=== PATIENT | male | born 1950 | race Caucasian/White ===

== ENCOUNTER 2016-07-23 23:52 | Inpatient (IN) | payer MEDICARE ==
[~2016-07-23] VITALS: Ht 180.3 cm; Wt 114.6 kg
[~2016-07-23 23:52] MED LIST: ASPI81TA40 PO; ATOR40TA37 PO; COR625 PO; NIT4 SL; PLA75 PO; ZES10 PO
[2016-07-23 23:55] VITALS: BP 89/59; PULSE 161; RESP 20; O2SAT 94
[2016-07-24] VITALS (14 sets, daily range): BP systolic 80–137; BP diastolic 58–84; PULSE 55–163; RESP 15–22; O2SAT 95–98
--- NOTE | 2016-07-24 | ED.REPORT ---
HPI-Chest Pain 40 and Over Date of Service Jul 23, 2016 ED Provider: Diane Rayo MD 66 year old male with a history of ME, HTN, and high cholesterol presents to the ER accompanied by his complaining of heavy chest pain onset this afternoon, worsening just prior to arrival. He also reports low blood pressure ( 87/60 at home), diaphoresis, persistent fatigue all day, and intermittent lightheadedness. Patient denies fever, chills, cough, swelling of the lower extremities, and recent immobilization, hospitalization, or travel. Symptoms have been treated with 162mg ASA. 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 Patient is a vague historian. EF of 56% in 2013. Nursing Notes Stated Complaint: CHEST PAIN Chief Complaint: Chest Pain Nursing Notes Reviewed: Yes Allergies: Coded Allergies: No Known Allergies (Unverified Allergy, Unknown, 07/24/16) Scheduled Aspirin-Expunged Drug, Do Not Renew! (Aspirin-Expunged Drug, Do Not Renew!) 81 Mg Tab.chew 81 MG PO DAILY Atorvastatin-Expunged Drug, Do Not Renew! (Atorvastatin-Expunged Drug, Do Not Renew!) 40 Mg Tablet 40 MG PO HS CLOPIDOGREL-Expunged Drug, Do Not Renew! (Plavix-Expunged Drug, Do Not Renew!) 75 Mg Tablet 75 MG PO DAILY Carvedilol-Expunged Drug, Do Not Renew! (Carvedilol-Expunged Drug, Do Not Renew! ) 6.25 Mg Tablet 6.25 MG PO BID For OUTPATIENT can convert to long acting Coreg CR 20 mg Daily Lisinopril-Expunged Drug, Do Not Renew! (Lisinopril-Expunged Drug, Do Not Renew! ) 10 Mg Tablet 10 MG PO DAILY Nitroglycerin-Expunged Drug, Do Not Renew! (Nitroglycerin SL-Expunged Drug, Do Not Renew!) 0.4 Mg Subl 0.4 MG SL PRN General Time Seen by MD: 23:56 Chief Complaint Chest pain Hx Obtained From: Patient, Spouse Arrived By: Walk-in Sudden in Onset?: No Onset Occurred: 5 - 8 hours ago Symptom Duration: Since onset Location: : Substernal Quality: Heaviness, Pressure Radiation: : Does not radiate Severity: Current: Moderate Severity: Maximum: Moderate Associated with: Reports: Diaphoresis, Denies: Nausea, Vomiting Context Related History: Reports: Hypertension, Myocardial infarction Similar Sx Previous: Yes Risk Factors )( CAD Risk Stratification Hyperlipidemia HypertensionNo Diabetes mellitus Risk factors reviewed Past Medical History 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 Past Medical History ME Reports: Hyperlipidemia (High cholesterol), Hypertension, Denies: Diabetes mellitus Past Surgical History Right rotator cuff surgery Left knee surgery Cardiac catheterization Smoking History Current Every Day Smoker Social History Other Social History: Good social support, Ambulatory Status Independent Review of Systems Constitutional: Reports: Fatigue, Malaise, Denies: Chills, Fever Respiratory: Denies: Non-productive cough Cardiovascular: Reports: Chest pain GI: Denies: Nausea, Vomiting Musculoskeletal: Denies: Extremity swelling Skin: Reports Diaphoresis Neurologic: Reports: Dizziness, Lightheaded Complete sys rev & neg: except as marked. Physical Exam Initial Vital Signs Vital Signs (First) Date Time Temp Pulse Resp B/P Pulse Ox O2 Delivery O2 Flow Rate FiO2 07/23/16 23:55 36.4 161 20 89/59 94 Room Air Initial VS: Reviewed Head / Eyes: Atraumatic, Normocephalic Neck: Supple, Non-tender, Full range of motion Extremities: Vascular intact, Neuro intact, No swelling, No tenderness Neurologic: Alert, Oriented, Nonfocal General/Constitutional: Awake, Alert, Well developed, Well nourished Appearance / Presentation: Positive: Obese Respiratory / Chest: Breath sounds NL, Breath sounds = bilat, No respiratory distress, No rales, No rhonchi, No wheezing, No stridor, No chest tenderness Cardiovascular: Regular rhythm, No gallop, No murmurs, No rubs, Peripheral circulation NL Heart Rate / Rhythm: Positive: Tachycardia Abdomen: Soft, Non-tender, No guarding, No rebound, No distention Interpretation & Diagnostics Lab Results Interpretation Result Diagram: 07/24/16 0007 07/24/16 0007 Test 07/24/16 00:07 07/24/16 00:08 07/24/16 00:45 White Blood Count 7.4th/mm3 (3.8-10.1) Red Blood Count 4.79mil/mm3 (4.40-5.80) Hemoglobin 14.4g/dL (13.8-17.2) Hematocrit 43.5% (41.0-50.0) Mean Corpuscular Volume 90.8fL (81-100) Mean Corpuscular Hemoglobin 30.1pg (27.0-35.0) Mean Corpuscular Hemoglobin Concent 33.1% (32.0-37.0) Red Cell Distribution Width 14.2% (12.3-15.4) Platelet Count 227bil/L (150-400) Neutrophils (%) (Auto) 59.6% (40-74) Lymphocytes (%) (Auto) 27.2% (14-46) Monocytes (%) (Auto) 9.1% (4-12) Eosinophils (%) (Auto) 3.4% (0-5) Basophils (%) (Auto) 0.4% (0-3) Hold Purple Top Tube Received (Received) Hold Blue Top Tube Received (Received) Sodium Level 140mEq/L (134-144) Potassium Level 4.1mEq/L (3.5-5.2) Chloride Level 102mEq/L (97-108) Carbon Dioxide Level 21mmol/L (18-29) Blood Urea Nitrogen 21mg/dL (8-27) Creatinine 1.25mg/dL (0.76-1.27) Estimat Glomerular Filtration Rate 61mL/min (>59) Glucose Level 114mg/dL (60-99) Lactic Acid Level 1.5mmol/L (0.4-2.0) Calcium Level 8.7mg/dL (8.5-10.1) Magnesium Level 2.1mg/dL (1.6-2.6) Total Bilirubin 0.2mg/dL (0.0-1.2) Aspartate Amino Transf (AST/SGOT) 41U/L (0-50) Alanine Aminotransferase (ALT/SGPT) 19U/L (0-44) Alkaline Phosphatase 59U/L (25-160) Total Creatine Kinase 697U/L (21-232) Creatine Kinase MB 11.2ng/mL (0.0-10.4) Creatine Kinase MB % 1.6% (0.0-5.0) Troponin T 0.012ug/L (0.0-0.011) Pro-B-Type Natriuretic Peptide 620.9pg/mL (0-376) Total Protein 7.0g/dL (6.4-8.4) Albumin 4.0g/dL (3.4-5.0) Procalcitonin 0.06ng/mL (0.00-0.08) Hold Hunker Top Tube Received (Received) Hold Lara Top Tube Received (Received) Prothrombin Time 10.3sec (8.1-12.5) Prothromb Time International Ratio 0.96ratio Activated Partial Thromboplast Time 28.7sec (22.8-33.0) D-Dimer < 0.50mg/L FEU (<0.50) Hold Red Top Tube Received (Received) ECG Interpretation ECG Interpretation: Sinus tachycardia, rate [address] depression v2, v3, v4, v5 No ST elevation Time: 00:07 Interpreted by: ED physician ECG Interpretation: Sinus rhythm, rate [address] elevation Time: 00:33 Interpreted by: ED physician X-Ray Chest Interpretation Chest Xray Interpretation: Widening of the mediastinum. View: Portable, 1 view Interpretation / Wet Read by: Wet read ED physician CT Chest Interpretation IMPRESSION: No evidence for PE. Large hiatal hernia Electronically signed by Adam Nunez M.D. Study type: CT pulm angiogram Interpretation / Wet Read by: Interpret - Radiologist Procedures Electrical Cardioversion Electrical Cardioversion: Chemical Cardioversion. 6mg Adenosine administered intravenously. Time: 00:33 Procedure Performed by: ED physician Indication: Supraventricular tachy Consent / Setup / Site Prep: Informed consent provided, Consent from patient , Time-out performed, Placed on oxygen, Placed on pulse oximeter, Place on advertising internship, Hand hygiene observed, Stand sterile technique Procedure Successful: Yes Post-Procedure Rhythm: Normal sinus rhythm Post-Procedure / Complications: No complications, Condition improved, Tolerated procedure well, Patient stable Re-Eval/Medical Decision Med Decision/Clinical Course 56-year-old male with past medical history of ME here with chest pain and found to be tachycardic and hypotensive initially. Patient's EKG was concerning for SVT. He was given 6 mg of adenosine which converted him to normal sinus rhythm , though he continued to have chest pain. His blood pressure remained mildly low with systolics in the low 100s. He can to 81 mg aspirin. He was given 2 more. His initial chest x-ray showed mild mediastinal widening, so I elected to perform CT of the chest to rule out aortic dissection. His CT was negative. He was then heparinized for non-ST elevation ME, with positive troponin and admitted to the hospitalist on PCC. He is aware and amenable admission. The remainder of his labs were unremarkable Source of Hx: Old records Time of Eval: 00:07 Re-Evaluation/Progress Note: Discussed physical examination findings and need for admission. Patient is amenable to the plan. All other questions addressed. Time of Eval: 00:36 Re-Evaluation/Progress Note: Patient successfully converted after administration of IV adenosine. Consultation : Referral / Consult Name: Du Hugo MD Consulted With: Hospitalist Call Returned at: 02:45 Intermediate Teacher: Agrees with eval, Agrees with plan, Accepts admit Counseled Regarding: Diagnosis, Lab results, Need for admission Discharge & Departure Primary Impression: SVT (supraventricular tachycardia) Additional Impressions: Tachycardia Chest pain NSTEMI (non-ST elevated myocardial infarction) Disposition: ADMITTED TO HOSPITAL Discharge Condition All VS Reviewed: Yes Condition: Stable Referrals: NOPCP (PCP) Sarah Elder MD Crit Care Except Billable Proc Time Spent: 30-74 minutes Services Performed: Patient management by me, Time spent at bedside, Reviewing test results, Reviewing imaging, Discussing patient care, Documentation in record, Time with fam/surrogate Scribe Attestation Portions of this note were transcribed by Kevin Torres. I, Dr. Rayo, personally performed the history, physical exam and medical decision-making; I reviewed and confirmed the accuracy of the information in the transcribed note. Signed by: Elizabeth Garrett. 07/24/2016 - 02:47 copies to: Sarah Elder MD, Rebecca A MD Jul 24, 2016 00:00 EKVIN TORRES Jul 24, 2016 00:07 Pau Dumont Jul 24, 2016 02:37
[2016-07-24] MEDS ORDERED: 0.9% Sodium Chloride 500 ML IV ONE (00:08)
[2016-07-24 00:18] LABS: BASOPHILS % (AUTO) 0.4 % (0-3); EOSINOPHILS % (AUTO) 3.4 % (0-5); MONOCYTES % (AUTO) 9.1 % (4-12); Mean Corpuscular Hemoglobin 30.1 pg (27.0-35.0); Mean Corpuscular Volume 90.8 fL (81-100); NEUTROPHILS % (AUTO) 59.6 % (40-74); Platelet Count 227 bil/L (150-400)
[2016-07-24] MEDS ORDERED: Adenosine 3 mg/mL 2 mL Inj ONE (00:24)
[2016-07-24 00:30] LABS: D-Dimer < 0.50 mg/L FEU (<0.50); INR 0.96 ratio
[2016-07-24] MEDS ORDERED: Adenosine 3 mg/mL 2 mL Inj IVPUSH ONE (00:35)
[2016-07-24 01:06] LABS: Magnesium 2.1 mg/dL (1.6-2.6); TROPONIN T 0.012 ug/L (0.0-0.011)
[2016-07-24] MEDS ORDERED: Heparin 25K Unit/500mL 0.45 NS 25,000 UNIT in IV Premix 1 EACH IV ONE (02:50)
[2016-07-24] MEDS ORDERED: Ondansetron 2 mg/mL 2 mL Inj IVPUSH PRN ×2 (02:50→04:25)
[2016-07-24] MEDS ORDERED: Alum-Mag Hydrox-Simeth 30 mL Suspension PO PRN ×2 (02:50→04:25)
[2016-07-24] MEDS ORDERED: Heparin 5,000 Unit/mL Inj IVPUSH ONE ×2 (02:50→04:20)
--- NOTE | 2016-07-24 04:00 | PCM.HPMED ---
Subjective Date of Service Jul 24, 2016 Primary Provider: Admitting Physician: Du Hugo MD Primary Care Physician: Noptere Attending Physician: Du Hugo MD Admit Status: From the Emergency Department Chief Complaint: Chest pain History of Present Illness: This is a pleasant 66 Y/O M with hx of prior PA in 2013 s/p cardiac catheterization 03/2013, HTN, and hyperlipidemia, who presented to the ED complaining of chest pain/chest pressure and patient described as 2-3 out of 10 achy dull pain that is constant, diffusely across the precordium and reportedly feels like a small elephant on his chest. Similar to when he had his previous PA however much less severe. Patient began to experience fatigue onset around noon, as well as diaphoresis and chest pain and pressure onset around 5 PM on the night of admission. Patient stated that the chest pain was constant lasting until he presented to the emergency department around midnight. Patient reported the chest pain was worsening just prior to arrival. Associated symptoms of dry cough and shortness of breath. Of note patient had low blood pressure's (87/60 at home) and initially in the ED at time of presentation. Patient denies tobacco use, fever, chills, headaches, slurred speech, pain that radiates to the neck arm or back, abdominal pain, dysuria, hematuria, hematochezia, focal weakness, swelling of the lower extremities, recent immobilization, hospitalization, or travel. He denied chest palpitations however when upon presentation to the ED was found to be in SVT and was given amiodarone with conversion to sinus rhythm. Echo done 04/08/2013 showed showed normal sinus rhythm wide QRS complexes, mildly dilated left ventricle, normal wall thickness, there is inferolateral and lateral wall hypokinesis extended from base to the distal inferior segment. stage II diastolic dysfunction and no significant valvular abnormalities, normal chamber size, mildly dilated aortic root. Per ED note his EF is 56% in 2012. Vitals on presentation to ED: Temperature 36.4, pulse 161, respiratory rate 20, blood pressure 89/59 with a map of 69, 94% on room air. Repeat vitals: Temperature 36.6, pulse 69, respiratory rate 18, blood pressure 112/75 with a map of 87, 98% room air. Hemogram showed WBCs 7.4, neutrophils 59.6, lymphs 27.2, H/H 14.4/43.5 platelet count 227, overall normal hemogram. Chemistry panel sodium 140 potassium 41, chloride 102, CO2 21, BUN 21, creatinine 1.25, glucose 114, LFTs within normal limits, total creatinine kinase 697, CK-MB elevated at 11.2, consistent with cardiac ischemia, troponin elevated at 0.012, proBNP 620.9, pro calcitonin 0.06, lactic acid 1.5 PT/INR, 10.3/0.96, APTT 28.7, d-dimer less than 0.50 Patient had blood cultures 2 ordered and are pending Patient received 500 mL IV in the ED. Patient was shown to have SVT in the ED and was given adenosine which converted arrhythmia. Patient had elevated troponin of 0.012 Patient received aspirin 324 mg by mouth once CT angiography chest: Showed large hiatal hernia, no evidence of pulmonary embolism CXR: Widening of the mediastinum as read by ED physician EKG: Sinus tachycardia with a rate of 164, right bundle branch block, ST depressions in V2 through V5, no sign of ST elevation. Patient was admitted to the hospital for acute coronary syndrome rule out. Review of Systems: A comprehensive review of systems was conducted and was negative except as mentioned in history of present illness. Allergies Coded Allergies: No Known Allergies (Unverified Allergy, Unknown, 07/24/16) Home Medications Aspirin-Expunged Drug, Do Not Renew! (Aspirin-Expunged Drug, Do Not Renew!) 81 Mg Tab.chew 81 MG PO DAILY Atorvastatin-Expunged Drug, Do Not Renew! (Atorvastatin-Expunged Drug, Do Not Renew!) 40 Mg Tablet 40 MG PO HS CLOPIDOGREL-Expunged Drug, Do Not Renew! (Plavix-Expunged Drug, Do Not Renew!) 75 Mg Tablet 75 MG PO DAILY Carvedilol-Expunged Drug, Do Not Renew! (Carvedilol-Expunged Drug, Do Not Renew! ) 6.25 Mg Tablet 6.25 MG PO BID For OUTPATIENT can convert to long acting Coreg CR 20 mg Daily Lisinopril-Expunged Drug, Do Not Renew! (Lisinopril-Expunged Drug, Do Not Renew! ) 10 Mg Tablet 10 MG PO DAILY Nitroglycerin-Expunged Drug, Do Not Renew! 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 PA Reports: Hyperlipidemia (High cholesterol), Hypertension, Denies: Diabetes mellitus Surgical History Right rotator cuff surgery Left knee surgery Cardiac catheterization Social History Hx Alcohol Use: No Hx Substance Use: No Smoking Status: Current Every Day Smoker Exam Vital Signs Vital Sign - Last Date Time Temp Pulse Resp B/P Pulse Ox O2 Delivery O2 Flow Rate FiO2 07/24/16 03:38 36.6 69 18 112/75 98 Room Air Intake and Output 07/23/16 07/23/16 07/24/16 Cumulative From/Thru 15:00 23:00 07:00 07/23/16 23:55 - 07/24/16 03:39 Intake Total 500 ml 500 ml Balance 500 ml 500 ml Intake IV Total 500 ml 500 ml Exam General: Alert and oriented 3 in no acute distress, resting comfortably at the side of the speaking in full sentences, currently having no chest pain HEENT: NC/AT, eyes, PERRLA, EOMI, neck, soft supple, no adenopathy, no JVD, no masses, no thyromegaly, throat mucous membranes pink and moist, no erythema, no exudates, no tonsillar swelling, no uvular deviation. Lungs: CTAB all bailon, no wheezes, no rhonchi, no crackles, no adventitious lung sounds, no use of accessory muscles of respiration, good air movement, good respiratory effort. Heart: Regular rate and rhythm, no murmur, S1-S2 present, no rub, no click, no distant heart sounds, Abdomen: Soft, nontender, nondistended, protuberant, bowel sounds active, no rebound, no guarding, Genitourinary: No CVA tenderness, no suprapubic tenderness Extremities: Pulses equal and symmetric radial pulse no edema Neurologic: Grossly neurologically intact, in full sentences, no focal neurological signs Skin: warm, dry no rash Lab and Diagnostics Result Diagram: 07/24/16607/24/166 Assessment & Plan This is a pleasant 66-year-old male with history of PA, status post catheterization in 2012 with history of hyperlipidemia presented to the ED with acute onset chest pressure/pain related to her 3, diaphoresis, fatigue, and tachyarrhythmia converted to normal sinus rhythm on amiodarone, and had elevated liver enzymes troponin and CK-MB and was admitted for acute coronary syndrome workup. # Acute Coronary Syndrome/PA, Present on Admission -Vitals on presentation to ED: Temperature 36.4, pulse 161, respiratory rate 20 , blood pressure 89/59 with a map of 69, 94% on room air. - Echo 03/31/2013 showed normal sinus rhythm wide QRS complexes, mildly dilated left ventricle, normal wall thickness, there is inferolateral and lateral wall hypokinesis extended from base to the distal inferior segment. stage II diastolic dysfunction and no significant valvular abnormalities, normal chamber size, mildly dilated aortic root. Per ED note EF was 56% -Patient was shown to have SVT in the ED and was given adenosine which converted arrhythmia. -Patient had elevated troponin of 0.012 -total creatinine kinase 697, CK-MB elevated at 11.2, consistent with cardiac ischemia, -Patient received aspirin 324 mg by mouth once -CT angiography chest: Showed large hiatal hernia, no evidence of pulmonary embolism -CXR: Widening of the mediastinum as read by ED physician -EKG: Sinus tachycardia with a rate of 164, right bundle branch block, ST depressions in V2 through V5, no sign of ST elevation. -Troponin 2 to trend -O2 Sats keep > 94% -IV fluids normal saline at 100 mL per hour maintenance dose -Metoprolol tartrate 12.5 mg every 12H -Lisinopril 10 mg daily -Atorvastatin 80 mg daily -Morphine for pain control -Nitro SL, Nitro [place], Nitro Paste (PRN) -Aspirin 325mg -Unfractionated Heparin IV (Protamine for reversal if needed) -Continuous Cardiac Monitoring/BP monitoring -Cardio Consult (in AM) patient's hard tile setter is Dr. Posadas -Labs (Lipid Panel, CBC, CMP in the a.m) -NPO for possible cath procedure in the morning Chronic problems: Hypertension, hyperlipidemia History of PA 2012 status post coronary cath Disposition: Admitted to in patient service with expected length of stay greater than 2 days, secondary to severity of presenting symptoms, treatment plan, complexity of clinical work up, and risk of adverse events. CODE STATUS: Full code PCP: [facility] DVT PE prophylaxis: Patient is on heparin drip Contact: Liza Skinner, Pain Evaluation: Adequate Pain Control VTE Prophylaxis: Other (patient is on a heparin drip for ACS) Resuscitation Status: CPR: Attempt Resuscitation Attending Statement The patient was seen and examined together with Dr. Ross (07/24/2016 and I have added additional information to the note above. chest pain nstemi svt chest pain free now.empirc rx for nstemi. heparin infusion. serial troponins. cardiology evaluation. may have had elevated troponin, chest pain from tachyarrhythmia vs cad/acs Alphonse Nunez DO Jul 24, 2016 04:00 Du Hugo MD Jul 24, 2016 06:25
[2016-07-24] MEDS ORDERED: Polyethylene Glycol (PEG) 17 Gm Powder PO PRN (04:25)
[2016-07-24] MEDS ORDERED: Senna-Docusate 8.6-50 mg Tablet PO PRN (04:25)
[2016-07-24] MEDS: Heparin 25K Unit/500mL 0.45 NS 25,000 UNIT in IV Premix 1 EACH IV SCH (05:21)
[2016-07-24] MEDS: 0.9% Sodium Chloride 1,000 ML IV SCH ×2 (05:25→16:54)
[2016-07-24 05:34] LABS: Magnesium 2.1 mg/dL (1.6-2.6); TROPONIN T 0.017 ug/L (0.0-0.011)
[2016-07-24 05:42] LABS: APPEARANCE,URINE CLEAR (CLEAR,HAZY); COLOR,URINE YELLOW (YELLOW); OCCULT BLOOD,URINE NEGATIVE (NEGATIVE); PH,URINE 5.5 (5.0-8.0); UROBILINOGEN,URINE NORMAL (NORMAL)
[2016-07-24] MEDS ORDERED: BUPR150T12 PO (06:38)
[2016-07-24] MEDS ORDERED: EZET10TA PO (06:38)
[2016-07-24] MEDS ORDERED: LISI10TA PO (06:42)
[2016-07-24] MEDS ORDERED: ASPI-973 PO (06:42)
[2016-07-24] MEDS ORDERED: CLOP75TA28 PO (06:42)
[2016-07-24] MEDS ORDERED: CARV6.252 PO (06:42)
--- NOTE | 2016-07-24 06:54 | NUR ---
Admit Pt arrived to PCC from ED. Pt able to self transfer from rherron to bed. Pt is A&Ox3 and able to SPANGLER. Pt started on Heparin gtt and NS @ 80. Admit and Med Rec completed. No CP, SOB noted. Pt orient to hospital policies, call light and room. VSS and Tele SR. Pt did have and episode of SVT that lasted 8 mins. DAY nurse aware. VSS and Tele SR
--- NOTE | 2016-07-24 08:24 | DRSVH ---
PROCEDURE: X-RAY CHEST ONE VIEW, PORTABLE ([id number]) INDICATIONS: chest pain TECHNIQUE: One view of the chest was acquired. COMPARISON: [facility], CT, CT ANGIO CHEST, 07/24/2016, 1:46. [facility], CR , CHEST 1VW (PORTABLE), 03/30/2013, 9:50. FINDINGS: Surgical changes and devices: None. Lungs and pleura: No pleural effusions or pneumothorax. Lungs are clear. Mediastinum: Large hiatal hernia. Mediastinal contours otherwise appear normal. Heart size is kenyon l. Bones and chest wall: No suspicious bony lesions. Overlying soft tissues appear unremarkable. IMPRESSION: 1. No acute process. 2. Large hernia. Dictated by: Alex Chacon M.D. on 07/24/2016 at 8:22 Approved by: Alex Chacon M.D. on 07/24/2016 at 8:23
[2016-07-24] MEDS: Sodium Chloride LOK Flush 10 mL Syringe IVFLUSH SCH ×2 (08:30→16:30)
--- NOTE | 2016-07-24 09:02 | DRSVH ---
PROCEDURE: CT ANGIOGRAPHY OF THE CHEST WITH AND WITHOUT CONTRAST ([id number]) INDICATIONS: wide mediastinum TECHNIQUE: After the administration of intravenous contrast, 3 mm thick sections acquired from the lung apices t o the posterior lung bases. 3-dimensional maximum intensity projection (MIP) oblique sagittal reform ats were then acquired parallel to the aortic arch, and/or 3-dimensional volume rendering reformats. For radiation dose reduction, the following was used: automated exposure control. COMPARISON: None. FINDINGS: Image quality: Excellent. Aorta: Aorta and great vessels are normal in size. No mural irregularity or contrast extravasation to suggest aortic injury. Mediastinum: No hematomas. Heart size is normal. No pericardial effusion. No mediastinal or hilar adenopathy by size criteria. Central pulmonary arteries are normal in size. Esophagus is normal in caliber. Large hiatal hernia. Lungs and pleura: No acute airspace opacities. No pleural effusions or pneumothorax. Central and p eripheral airways are patent and normal in caliber. Bones and chest wall: No axillary adenopathy by size criteria. Thyroid gland is unremarkable. No s uspicious bony lesions. No vertebral body compression fractures. Abdomen: Visualized upper abdominal solid organs and bowel loops appear normal. IMPRESSION: 1. Large hiatal hernia. Mediastinum is otherwise within normal limits. Dictated by: Kita Diaz M.D. on 07/24/2016 at 8:31 Approved by: Kita Diaz M.D. on 07/24/2016 at 9:01
[2016-07-24] MEDS: Heparin 5,000 Unit/mL Inj IVPUSH PRN (11:20)
--- NOTE | 2016-07-24 11:27 | PCM.CHPCAR ---
Consult Subjective Date of service Jul 24, 2016 Date of admit Jul 24, 2016 at 02:52 Provider Requesting Consult Primary Care Physician Primary Care Physician: Meir Chief Complaint chest pain History of Present Illness 66 yo M h/o CAD and untreated HLD admitted with chest pain. Patient states that he was in his usual state of health until yesterday when he started having fatigue in the morning. He later developed chest pain in the day. Because it was not resolving, he is unable to our emergency room for further care. On arrival to the emergency room, his chest pain resolved. ECG on arrival did show SVT that resolved with IV adenosine 6 mg 1. Patient states that his chest pain resolved before resolution of the SVT. He was admitted overnight and was noted to have a small troponin elevation of 0.017. The cardiology was consulted for the troponin elevation and chest pain management. At the time of interview, patient states that he has no symptoms and wants to go home. He denies chest pain, shortness of breath, light headedness, or syncope. He also denies having any palpitations or heart racing sensations either the ER or overnight when he had SVT as noted on the telemetry. Denies fevers, chills, nausea, vomiting, hematemesis, or melena. Review of Systems Review of Systems Per history of present illness and otherwise unremarkable PMH Past Medical History # CAD s/p POBA of right PL branch in 05/2012 # Untreated HLD: patient refuses to take statin due to weight gain # Obesity Scheduled Aspirin (Aspirin) 81 Mg Tablet 81 MG PO DAILY (Reported) Bupropion ER (Bupropion ER) 150 Mg Tablet.er 150 MG PO DAILY (Reported) Carvedilol (Carvedilol) 6.25 Mg Tablet 6.25 MG PO BID (Reported) Clopidogrel (Clopidogrel) 75 Mg Tablet 75 MG PO DAILY (Reported) Ezetimibe (Zetia) 10 Mg Tablet 10 MG PO DAILY (Reported) Lisinopril (Lisinopril) 10 Mg Tablet 10 MG PO DAILY (Reported) Nitroglycerin-Expunged Drug, Do Not Renew! (Nitroglycerin SL-Expunged Drug, Do Not Renew!) 0.4 Mg Subl 0.4 MG SL PRN (Reported) Discontinued Medications Aspirin-Expunged Drug, Do Not Renew! (Aspirin-Expunged Drug, Do Not Renew!) 81 Mg Tab.chew 81 MG PO DAILY (Reported) Atorvastatin-Expunged Drug, Do Not Renew! (Atorvastatin-Expunged Drug, Do Not Renew!) 40 Mg Tablet 40 MG PO HS (Reported) CLOPIDOGREL-Expunged Drug, Do Not Renew! (Plavix-Expunged Drug, Do Not Renew!) 75 Mg Tablet 75 MG PO DAILY (Reported) Carvedilol-Expunged Drug, Do Not Renew! (Carvedilol-Expunged Drug, Do Not Renew! ) 6.25 Mg Tablet 6.25 MG PO BID (Reported) For OUTPATIENT can convert to long acting Coreg CR 20 mg Daily Lisinopril-Expunged Drug, Do Not Renew! (Lisinopril-Expunged Drug, Do Not Renew! ) 10 Mg Tablet 10 MG PO DAILY (Reported) Current Inpatient Medications Current Medications Al Hydrox/Mg Hydrox/Simethicone 30 ml Q6 PRN PO; Start 07/24/16 at 02:50 Ondansetron HCl Dose range: 4 mg to 8 mg Q4H PRN IVPUSH; Start 07/24/16 at 02:50 ; Stop 07/24/16 at 05:20; Status DC Acetaminophen 975 mg Q6H PRN PO; Start 07/24/16 at 02:50 Heparin Sodium (Porcine) Per Protocol for a... PRN PRN IVPUSH; Start 07/24/16 at 04:20 Morphine Sulfate 4 mg Q4H PRN IVPUSH; Start 07/24/16 at 04:25 Atorvastatin Calcium 80 mg HS PO; Start 07/24/16 at 21:00; Stop 07/24/16 at 21:00 ; Status DC Sodium Chloride 10 ml 10 ml BASILIA IVFLUSH; Start 07/24/16 at 08:30 Sodium Chloride 1,000 ml @ 80 mls/hr [id number] IV Last administered on 07/24/16 05:25; Admin Dose 80 MLS/HR; Start 07/24/16 at 04:24 Aspirin 325 mg DAILY PO Last administered on 07/24/16 09:05; Admin Dose 325 MG; Start 07/24/16 at 08:30 Lisinopril 5 mg HS PO; Start 07/24/16 at 21:00 Metoprolol Tartrate 12.5 mg Q12 PO Last administered on 4/6/17at 09:05; Admin Dose 12.5 MG; Start 07/24/16 at 08:30 Atorvastatin Calcium 40 mg HS PO; Start 07/24/16 at 21:00; Status UNV Al Hydrox/Mg Hydrox/Simethicone 30 ml Q6 PRN PO; Start 07/24/16 at 04:25 Ondansetron HCl 4-8 mg prn nausea Q4 PRN IVPUSH; Start 07/24/16 at 04:25 Senna 1 tablet BID PRN PO; Start 07/24/16 at 04:25 Polyethylene Glycol 17 gm DAILY PRN PO; Start 07/24/16 at 04:25 Acetaminophen 325 mg Q6 PRN PO; Start 07/24/16 at 04:25 Nitroglycerin 0.4 mg Q5MIN PRN SL; Start 07/24/16 at 04:25 Morphine Sulfate 1-5 mg prn pain not relie... Q5M PRN IVPUSH; Start 07/24/16 at 04:25; Stop 07/24/16 at 05:24; Status DC Rosuvastatin Calcium 10 mg HS PO; Start 07/24/16 at 21:00 Allergies: Coded Allergies: No Known Allergies (Unverified Allergy, Unknown, 07/24/16) Family History Family History Kids are healthy Social History Hx Alcohol Use: YesAlcoholic Drinks Per Day: 2-3 whiskeys a dayHx Substance Use: No Smoking Status: Former Smoker Exam Vital Signs Vital Sign - Last Date Time Temp Pulse Resp B/P Pulse Ox O2 Delivery O2 Flow Rate FiO2 07/24/16 09:00 36.4 61 18 110/75 96 Room Air Intake and Output 07/23/16 07/23/16 07/24/16 Cumulative From/Thru 15:00 23:00 07:00 07/23/16 23:55 - 07/24/16 04:56 Intake Total 500 ml 500 ml Output Total 0 ml 0 ml Balance 500 ml 500 ml Intake Oral 0 ml 0 ml IV Total 500 ml 500 ml Output Urine Total 0 ml 0 ml # Bowel Movements 0 0 General appearance: No apparent distress, well-nourished, pleasant, cooperative HEET: Normocephalic atraumatic, no scleral icterus, tongue midline, mucous membranes moist Neck: supple Cardiovascular: RRR, nl S1 and S2, no m/r/g, no JVD, no peripheral edema Respiratory: Good aeration, CTAB Abdomen: Soft, nontender, obese, + bowel sounds Neuro: Alert, no facial droop, tongue midline, no gross motor deficits Psych: appropriate affect Skin: no rashes on face, neck, and lower extremities Lab and Diagnostics Result Diagram: 07/24/16607/24/166 X-Rays, CTs and MRIs Cath 05/2012: moderate ectasia of the LAD and LCx, severe ectasia of the RCA, occluded distal PL treated with POBA. LFER 56%. Chest CTA 07/23/2016: Negative for acute cardiopulmonary process, large hiatal hernia present 12-lead ECG ECG in the ER: Short RP SVT with RBBB that converted with adenosine ECG today morning: Sinus rhythm with RBBB and nonspecific T-wave changes Assessment & Plan Assessment 66 yo M h/o CAD and untreated HLD admitted with chest pain: # Chest pain: Suspect patient's chest pain was related to his SVT related demand ischemia. His troponin did increase on little bit and peaked at 0.017 but now are normal. He is asymptomatic at this time. Patient has known coronary artery disease with moderate ectasia in the LAD and left circumflex artery and severe ectasia of the RCA. Furthermore, he refuses to take statins even though his LDL remains very high based on the outpatient labs. I spent significant time educating the patient about his condition and answered his questions. I strongly recommended he take a statin and work with us on figuring out which one would not work for him. I suggested that he try rosuvastatin 10 mg and he was open to it after a long discussion. Given his risk factors, I think it is important that he goes nuclear stress test to determine whether he has angina and to determine the amount of ischemia. Recommendations as below: - Continue aspirin 81mg daily - Start rosuvastatin 10mg qhs. Rosuvastatin is available generically only at our pharmacy, [facility], and [facility]. - Continue metoprolol 12.5mg bid - Continue lisinopril 5mg qhs - Treadmill sestamibi to assess for angina and area of ischemia # SVT: suspect AVNRT or AVRT. Converted with IV adenosine in the ER. Patient can be considered for SVT ablation as outpatient # HLD: He has only made significant changes to his diet and quit tobacco use in 2012. His lipids remain high based on his outpatient labs. I spent significant time educating the patient about importance of good lipid control. Statin as above. # Obesity: patient educated to work on loosing weight. Encouraged him to work with his primary care provider as outpatient. Thank you for the interesting consultation. Pain Evaluation: Adequate Pain Control VTE Prophylaxis: Other (patient is on a heparin drip for ACS) Resuscitation Status: CPR: Attempt Resuscitation Jayant Talbot MD Jul 24, 2016 11:27
--- NOTE | 2016-07-24 15:43 | NUR ---
Social work: Initial Assessment Data & Assessment: See Initial Assessment: EMR reviewed. Patient is a 66 y/o male who admitted on 07/24/16 for SVT and Non-stemi per H&P. SW met with patient and patient's , Kaia Preciado, at bedside to complete initial assessment, SW role reviewed and discharge planning discussed. Patient reported that his PCP is Aysha Rose DO at [facility]. Patient's insurance is medicare. Patient does not have LTC or VA benefits. Patient does not have any HH of SNF history. Patient lives in a mobile home with four steps to enter with his where he is independent at baseline. Patient does drive.Patient does not have a Advance Directive/DPOA. Patient does not have any current discharge needs. SW provided phone number and plan on white board in room. SW will continue to follow. Plan: Anticipated discharge home via POV when medically ready. No discharge needs identified at this time. SW to continue to follow if any needs arise. Kaia Cisneros LMSW, MARC Addendum: 07/24/16 at 1553 by KAIA FRY Amended: Links added.
--- NOTE | 2016-07-24 18:56 | PCM.PNMED ---
Subjective Date of Service Jul 24, 2016 Subjective Patient resting in bed comfortably when I visit with him. Family at bedside. Denies any current chest pain, no nausea vomiting or shortness of breath. No diarrhea or constipation. Exam Vital Signs Vital Sign - Last Date Time Temp Pulse Resp B/P Pulse Ox O2 Delivery O2 Flow Rate FiO2 07/24/16 13:20 36.5 55 19 110/75 97 Room Air Intake and Output 07/23/16 07/23/16 07/24/16 Cumulative From/Thru 15:00 23:00 07:00 07/23/16 23:55 - 07/24/16 04:56 Intake Total 500 ml 500 ml Output Total 0 ml 0 ml Balance 500 ml 500 ml Intake Oral 0 ml 0 ml IV Total 500 ml 500 ml Output Urine Total 0 ml 0 ml # Bowel Movements 0 0 Exam General: Alert, Oriented X3, NAD Head: Normocephalic, atraumatic Eyes: GUILLAUME, EOMI, no scleral Icterus Chest: clear to auscultation B/L, no wheezing rales or rhonchi Heart: Regular rate and rhythm. Normal S1, S2, no murmurs noted Abdomen: soft, non-tender. Bowel sounds are normoactive. No guarding or rebound. Extremities: no cyanosis, clubbing or edema. IVs and Medications Medications Reviewed: Medications were reviewed in detail Lab and Diagnostics Result Diagram: 07/24/16607/24/166 Assessment & Plan This is a pleasant 66-year-old male with history of WI, status post catheterization in 2012 with history of hyperlipidemia presented to the ED with acute onset chest pressure/pain related to her 3, diaphoresis, fatigue, and tachyarrhythmia converted to normal sinus rhythm on amiodarone, and had elevated liver enzymes troponin and CK-MB and was admitted for acute coronary syndrome workup. # Acute Coronary Syndrome/WI, Present on Admission. Known coronary artery disease -Failed stress test, discussed with cardiology for possible cardiac cath tomorrow. -Mildly elevated troponin has remained stable -Continue aspirin, atorvastatin, morphine for pain as well as nitroglycerin as needed #SVT noted on admission -Patient was given adenosine in the emergency room and converted to normal sinus -Continue to follow on telemetry #Hypertension -continue lisinopril and metoprolol #Renal failure: -Unknown chronicity, follow BMP #Hyperlipidemia -Continue statin CODE STATUS: Full code DVT prophylaxis: Patient is on heparin drip Disposition: Likely home pending hospital course VTE Prophylaxis: Other (patient is on a heparin drip for ACS) Resuscitation Status: CPR: Attempt Resuscitation Francisco Mehta DO Jul 24, 2016 14:27
--- NOTE | 2016-07-24 19:04 | NUR ---
Tele No reports of chest pain/pressure/discomfort. Tele SR with 1st degree and IVCD, rate 60s.No reports of SOB. SPO2 on RA 96%.No reports of n/v/d/c or abdominal pain. Voiding in urinal without complication. Alert and oriented x3, SPANGLER, reports full sensation. NPO at midnight per cardiology orders.
--- NOTE | 2016-07-24 22:56 | DRSVH ---
PROCEDURE: ONE DAY TREADMILL STRESS TEST. Rest and exercise myocardial perfusion SPECT with gated i maging and ejection fraction. RADIOPHARMACEUTICAL: 11.0 mCi Tc-99m tetrofosmin IV at rest and 30.2 mCi Tc-99m tetrofosmin IV at pe ak exercise. [id number] was performed. INDICATIONS: Chest pain TECHNIQUE: Radiopharmaceutical was injected at peak stress test, and also at rest. SPECT images wer e obtained. SPECT myocardial perfusion images were displayed in short axis, horizontal long axis, an d vertical long axis views. Gated images were reviewed using PerfectSearchQUANT software. COMPARISON: None. CARDIAC STRESS: A standard Roderick treadmill exercise tolerance test was performed by the patient unde r the supervision of attending staff. The patient exercised for 3 minutes and 46 seconds; functional aerobic impairment (ARA) was +45%. Hemodynamic Data: The patient achieved 68% of target heart rate. There was normal blood pressure re sponse. Symptoms: The patient had chest pain during exercise. On a scale of 1 to 10, it was about 4 in inte nsity. EKG: Baseline rhythm was sinus with right bundle branch block. Stress EKG did not reveal any obviou s inducible ischemic changes. The patient had mostly isolated PVCs during exercise as well as in rec overy with some couplets in recovery as well without any sustained ventricular tachycardia. FINDINGS: Raw Data: There was increased subdiaphragmatic activity. The patient's weight is 253 pounds. Left Ventricular Function: Resting LV ejection fraction is reported to be 42% and stress LV ejection fraction is 47%, however, on my visual inspection, during stress the LV ejection fraction appeared t o be more than 50% without any obvious wall motion abnormalities. Resting LV end diastolic volume wa s 157 mL, suggestive of a dilated left ventricle. Myocardial Perfusion: Stress supine, resting supine and stress prone images were compared to each ot her. It appears the patient has a predominantly-fixed, moderate to large-size, moderately-severe per fusion defect of the inferolateral wall, especially the base to mid inferolateral wall, with partial reversible ischemia involving the distal inferolateral wall. The ischemic burden does not appear to be significant. IMPRESSION: This is an abnormal myocardial perfusion study consistent with predominantly infarction (moderate to severe) of the inferolateral wall, with some daniel-infarct ischemia involving the distal inferolateral wall. The ischemic burden is not high. This is a sub-maximal exercise stress test. T he patient achieved only 68% of target heart rate with intermittent premature ventricular contraction s and ventricular couplets during exercise and in recovery. The patient had chest pain during exerci se, likely angina pectoris. I discussed the findings with the hospitalist team. Dictated by: Wendy Mederos M.D. on 07/24/2016 at 17:30 Transcribed by: GRETCHEN on 07/25/2016 at 1:56 Approved by: Wendy Mederos M.D. on 07/28/2016 at 17:01
[2016-07-25] VITALS (16 sets, daily range): BP systolic 120–140; BP diastolic 73–89; PULSE 57–70; RESP 12–20; O2SAT 93–98
[2016-07-25] MEDS: Sodium Chloride LOK Flush 10 mL Syringe IVFLUSH SCH ×3 (00:30→16:30)
[2016-07-25] MEDS: Heparin 5,000 Unit/mL Inj IVPUSH PRN (03:20)
[2016-07-25] MEDS: 0.9% Sodium Chloride 1,000 ML IV SCH ×2 (05:24→17:54)
--- NOTE | 2016-07-25 05:41 | NUR ---
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 Pt has been NPO since midnight, and pt denies CP, SOB and no reports of SVT. Pt independent in room and hallways with strong gait noted. VSS and Tele SR 60's with IVCD and 1st degree AVB. Evening dose Metoprolol held per order and MD.
[2016-07-25 07:49] LABS: BASOPHILS % (AUTO) 0.4 % (0-3); EOSINOPHILS % (AUTO) 5.4 % (0-5); MONOCYTES % (AUTO) 10.3 % (4-12); Mean Corpuscular Hemoglobin 29.9 pg (27.0-35.0); Mean Corpuscular Volume 92.6 fL (81-100); NEUTROPHILS % (AUTO) 61.8 % (40-74); Platelet Count 170 bil/L (150-400)
[2016-07-25] MEDS: Heparin 25K Unit/500mL 0.45 NS 25,000 UNIT in IV Premix 1 EACH IV SCH (12:36)
[2016-07-25] MEDS ORDERED: Heparin 5,000 Units/500 mL NS Premix IV ONE (13:28)
[2016-07-25] MEDS ORDERED: Heparin 1,000 Unit/mL 10 mL Inj ONE (13:28)
[2016-07-25] MEDS ORDERED: Nitroglycerin 50,000 mcg/250 mL D5W Premix IV ONE (13:28)
[2016-07-25] MEDS ORDERED: Labetalol 5 mg/mL 20 mL Inj ONE (14:06)
[2016-07-25] MEDS ORDERED: fentaNYL-PF 50 mCg/mL 2 mL Inj ONE (14:16)
--- NOTE | 2016-07-25 14:55 | CS94 ---
[place] [address] DIAGNOSTIC CARDIAC CATHETERIZATION PATIENT: ARIEL ARZOLA : 1950 MR#: [id number] ADMIT: 07/24/2016 JOB ID: [id number] SERVICE DATE: 07/25/2016 PATIENT PROFILE: The patient is a 66-year-old male with history of obesity, obstructive sleep apnea, hypertension and hyperlipidemia. He presented with acute coronary syndrome and abnormal stress test. PROCEDURE: 1. Retrograde left heart catheterization. 2. Selective coronary angiography. 3. Left ventricular angiogram. VASCULAR CLOSURE DEVICE: Perclose. COMPLICATIONS: None. METHOD: Retrograde left heart catheterization was performed from the right groin under 1% lidocaine local anesthesia using a 6-Austrian sheath. Selective coronary angiogram was performed in multiple projections, including cranial and caudal angulations with hand injected contrast via JL4 and 3DRC catheters. A 6-Austrian angulated pigtail catheter was advanced to the left ventricle and left ventricular angiogram was performed in the 30 degree LOPEZ view by injecting contrast of 15 cc/second for 3 seconds. This catheter was withdrawn. Right femoral angiogram was performed. Following sheath removal, hemostasis was achieved by using a Perclose device. The patient tolerated the procedure well. He was transferred to [facility] in good condition. TOTAL CONTRAST USED: 105 cc. FLUOROSCOPY TIME: 2.3 minutes. TOTAL RADIATION DOSE: 542 mGy. RESULTS: 1. Selective coronary angiogram: a. Left main coronary artery is normal. b. The left anterior descending artery has moderate ectasia in the proximal one third. The distal portion appears normal. c. The circumflex artery has moderate ectasia in the proximal half with normal distal portion. d. The dominant and large right coronary artery has diffuse severe coronary artery ectasia. The right posterior descending branch has minor irregularity. The right posterolateral branch has severe ectasia. 2. Left ventricular angiogram demonstrates moderate to severely depressed left ventricular systolic function (visually estimated ejection fraction 25%-30%). There is diffuse global hypokinesis. There is no mitral regurgitation. 3. There is no gradient across the aortic valve on catheter withdrawal. 4. Aortic pressure is 129/79 mmHg. Left ventricular pressure is 123/4 mmHg. 5. Left ventricular end-diastolic pressure is 23 mmHg. CONCLUSION: 1. Diffuse moderate coronary ectasia of the left anterior descending and circumflex artery. 2. Diffuse severe ectasia of the right coronary artery. 3. LVEF 25%-30%. 4. LVEDP is 23 mmHg. 5. There is no significant change compared with previous coronary angiogram from March 30, 2013. VALENTINED
--- NOTE | 2016-07-25 15:25 | DRSVH ---
[facility] [address] [place] [address] Echocardiogram Report Name: ARIEL AROZLA LStudy Date: 07/25/2016 Height: 71 in Hospital Exam Location: [facility] Weight: 253 lb Gender: Male BSA: 2.3 m2 : 1950 Age: 66 yrs BP: 121/85 mmHg Reason For Study: CHEST PAIN Ordering Physician: Performed By: Junito Auguste Interpretation Summary 1) Mildly dilated left ventricle with moderately reduced function (EF 35- 40%). 2) Inferolateral wall, basal to mid inferior wall, and anterolateral wall are severely hypokinetic. The anterior wall has moderate hypokinesis. 3) No significant valvular disease. 4) The ascending aorta is mildly enlarged (diameter 4cm). 5) Compared to the Echo done 03/31/2013, LVEF has dropped from normal to 35- 40% on today's study. Procedure: A two-dimensional transthoracic echocardiogram with color flow and Doppler was performed. The study quality was technically adequate. Comparison is made with the echocardiogram of 03/31/13. A contrast injection of Definity was performed to improve assessment of LV function. The patient was in normal sinus rhythm during the exam. Left Ventricle: There is normal left ventricular wall thickness. The left ventricle is mildly dilated. The ejection fraction is estimated to be 35-40%. Left ventricular systolic function is moderately reduced. Inferolateral wall, basal to mid inferior wall, and anterolateral wall are severely hypokinetic. The anterior wall has moderate hypokinesis. Right Ventricle: The right ventricle is mildly dilated. Right ventricular systolic function is mildly reduced. Atria: The left atrium is moderately dilated. Right atrial size is normal. The interatrial septum is intact with no evidence for an atrial septal defect. Mitral Valve: The mitral valve is normal in structure and function. There is mild mitral regurgitation. Aortic Valve: The aortic valve is trileaflet. The aortic valve opens well. There is no aortic valve stenosis. There is trace aortic regurgitation. Tricuspid Valve: The tricuspid valve is normal in structure and function. There is trace tricuspid regurgitation. The right ventricular systolic pressure is estimated at 29 mmHg assuming a right atrial pressure of 3 mm Hg. Pulmonic Valve: The pulmonic valve is normal in structure and function. There is trace pulmonic regurgitation. Great Vessels: The aortic root is normal size. The ascending aorta is mildly enlarged. The pulmonary artery is normal size. The IVC is of normal diameter and collapses greater than 50% with a sniff. This suggests a low right atrial pressure of 3 mm Hg. Pericardium/ Pleura There is no pericardial effusion. There is no pleural effusion. MMode/2D Measurements & Calculations LVIDd: 6.2 cm LA dimension: 3.9 cm RA long axis: 5.3 cm Ao root diam LVIDs: 5.5 cm FS: 11.0 % LA A2 area: 26.4 cm RA area: 20.7 cm Aortic Jxn: 2.7 cm EPSS: 1.5 cm LA A4 area: 23.4 cm RA vol: 67.9 ml asc Aorta Diam IVSd: 1.0 cm LA length (vol) RA : 29.1 ml/m2 LVPWd: 0.97 cm Ao Arch Diam (Prox LA vol: 89.3 ml Trans): 3.1 cm LA vol index IVC diam: 1.8 cm EDV(MOD-sp2) LV pa. diameter/BSA LV sys. diameter/BSA RVD1 (basal) : 111.7 ml (cm/m^2): 2.7 (cm/m^2): 2.4 : 3.8 cm RVD2 (mid) : 4.3 cm Doppler Measurements & Calculations Ao V2 max MV E max saad MV E/A: 0.70 TR max saad: 253.2 cm/sec : 123.2 cm/sec : 48.1 cm/sec Med Peak E' Saad TR max P.7 mmHg Ao max PG MV A max saad PA V2 max: 60.0 cm/sec : 6.1 mmHg : 68.3 cm/sec E/E' med: 9.0 PA mean P.83 mmHg Ao mean PG Lat Peak E' Saad PA Accel Time: 0.11 sec : 3.6 mmHg E/E' lat: 7.8 E/e' average: 8.4 Pulm A Revs Dur MV A dur: 0.15 sec MV dec time Ao V2 mean PA V2 mean Pulm A Revs Dur - MV A : 0.29 sec : 92.5 cm/sec : 43.3 cm/sec Dur: -0.01 msec Ao V2 VTI PA pr(Accel) : 29.1 cm : 22.4 mmHg Reading Physician:03:24 PM
[2016-07-25] MEDS ORDERED: MeTOProlol XL 50 mg ER24 Tablet PO SCH (15:35)
--- NOTE | 2016-07-25 16:54 | NUR ---
Received/Recovery/Transfer Received from computer lab para professional about 1440. VSS. Tele SR-SB with rare PVC. Right groin without bleeding or hematoma. Denies pain. IVF infusing per order. Taking po fluid well. No change in assessment 2 hours post cath. Report called to Myles Gonzales RN. Transported to 2006 via bed in no distress at 1645. Bedside check done.
--- NOTE | 2016-07-25 17:47 | NUR ---
Received Pt. was NPO most of the day until he left for his cath procedure at ~1350. Report was taken from [facility] nurse at ~1600 and Pt. returned back to room [address] [place] [address] at ~1640. Pt. VS stable, no c/o pain, SOB or CP. Right incisional groin site C/D/I with a bio-occlusive dressing, no gauze. Pt. denies pain upon palpation and right groin soft and nontender. Pt. is BR until 1830.
[2016-07-25] MEDS ORDERED: METO-272 PO (18:12)
[2016-07-25] MEDS ORDERED: NITR0.4T SL (18:12)
[2016-07-25] MEDS ORDERED: Aspirin-Expunged Drug, Do Not Renew! PO (18:12)
[2016-07-25] MEDS ORDERED: LISI-571 PO (18:12)
[2016-07-25] MEDS ORDERED: CREST10T PO (18:12)
--- NOTE | 2016-07-25 18:15 | PCM.DIMED ---
Discharge Instructions Date of Service Jul 25, 2016 Dates of Hospitalization Jul 24, 2016 at 02:52 Discharge Diagnosis Discharge Diagnosis Coronary artery disease Cardiomyopathy Diet Heart Healthy Activity Limited until seen by PCP Call your provider Fever or Chills, Shortness of breath, Chest pain, Excessive diarrhea, Weakness ( unilateral) Patient Instructions Follow-up plan Follow-up with cardiology in 3-4 weeks Follow-up with PCP in: 1 week Francisco Mehta DO Jul 25, 2016 18:15
--- NOTE | 2016-07-25 19:59 | NUR ---
Discharge Discharge paperwork given to pt and spouse; accompanied by aide to car at approx. 1950. Pt verbalized understanding of instructions. All belongings with pt at time of discharge. PIV d/c'd intact.
--- NOTE | 2016-07-26 19:20 | PCM.DC.MED ---
Discharge Summary Date of Service Jul 25, 2016 Dates of Hospitalization Date of Hospital Admission Jul 24, 2016 at 02:52 Date of Discharge: Jul 25, 2016 Providers: Admitting Physician: Du Hugo MD Primary Care Physician: Meir Attending Physician: Du Hugo MD Diagnosis at Time of Discharge Diagnosis at Time of Discharge Coronary artery disease Cardiomyopathy Consultations Cardiology Procedures Cardiac Echo Impression 07/25/2016 Interpretation Summary 1) Mildly dilated left ventricle with moderately reduced function (EF 35- 40%). 2) Inferolateral wall, basal to mid inferior wall, and anterolateral wall are severely hypokinetic. The anterior wall has moderate hypokinesis. 3) No significant valvular disease. 4) The ascending aorta is mildly enlarged (diameter 4cm). 5) Compared to the Echo done 03/31/2013, LVEF has dropped from normal to 35- 40% on today's study. Invasive Procedures Cardiac cath CONCLUSION: 1. Diffuse moderate coronary ectasia of the left anterior descending and circumflex artery. 2. Diffuse severe ectasia of the right coronary artery. 3. LVEF 25%-30%. 4. LVEDP is 23 mmHg. 5. There is no significant change compared with previous coronary angiogram from March 30, 2013. Brief History 66 yo M h/o CAD and untreated HLD admitted with chest pain. Patient states that he was in his usual state of health until yesterday when he started having fatigue in the morning. He later developed chest pain in the day. Because it was not resolving, he is unable to our emergency room for further care. On arrival to the emergency room, his chest pain resolved. ECG on arrival did show SVT that resolved with IV adenosine 6 mg 1. Patient states that his chest pain resolved before resolution of the SVT. He was admitted overnight and was noted to have a small troponin elevation of 0.017. The cardiology was consulted for the troponin elevation and chest pain management. At the time of interview, patient states that he has no symptoms and wants to go home. He denies chest pain, shortness of breath, light headedness, or syncope. He also denies having any palpitations or heart racing sensations either the ER or overnight when he had SVT as noted on the telemetry. Denies fevers, chills, nausea, vomiting, hematemesis, or melena. Hospital Course This is a pleasant 66-year-old male with history of DC, status post catheterization in 2012 with history of hyperlipidemia presented to the ED with acute onset chest pressure/pain, SVT, diaphoresis, fatigue, and tachyarrhythmia converted to normal sinus rhythm on amiodarone, and had elevated liver enzymes troponin and CK-MB and was admitted for acute coronary syndrome workup. The patient had a nuclear medicine stress test which was abnormal, cardiology was consulted and he underwent coronary angiography 07/25/2016. The heart cath showed severe coronary artery disease, however unchanged from previous exam. No intervention was indicated. His coronary artery disease will be treated medically per cardiology. He is to continue with beta danitza/metoprolol, statin, aspirin. He was also given nitroglycerin. We will need to follow up with his child psychiatrist in 3-4 weeks. Delineated problem list as below # Acute Coronary Syndrome/DC, Present on Admission. Known coronary artery disease -Failed stress test, discussed with cardiology for possible cardiac cath tomorrow. -Mildly elevated troponin has remained stable -Continue aspirin, atorvastatin, morphine for pain as well as nitroglycerin as needed #SVT noted on admission -Patient was given adenosine in the emergency room and converted to normal sinus -Continue to follow on telemetry #Hypertension -continue lisinopril and metoprolol #Renal failure: -Unknown chronicity, follow BMP #Hyperlipidemia -Continue statin Exam Vital Signs (Last) Date Time Temp Pulse Resp B/P Pulse Ox O2 Delivery O2 Flow Rate FiO2 07/25/16 16:57 36.5 62 18 125/82 96 Room Air Test 07/24/16 00:07 07/24/16 00:08 07/24/16 00:45 07/24/16 04:40 Hold Purple Top Tube Received (Received) Hold Blue Top Tube Received (Received) Lactic Acid Level 1.5mmol/L (0.4-2.0) Total Bilirubin 0.2mg/dL (0.0-1.2) Aspartate Amino Transf (AST/SGOT) 41U/L (0-50) Alanine Aminotransferase (ALT/SGPT) 19U/L (0-44) Alkaline Phosphatase 59U/L (25-160) Total Creatine Kinase 697U/L (21-232) Creatine Kinase MB 11.2ng/mL (0.0-10.4) Creatine Kinase MB % 1.6% (0.0-5.0) Pro-B-Type Natriuretic Peptide 620.9pg/mL (0-376) Total Protein 7.0g/dL (6.4-8.4) Albumin 4.0g/dL (3.4-5.0) Procalcitonin 0.06ng/mL (0.00-0.08) Hold Mallard Top Tube Received (Received) Hold Lara Top Tube Received (Received) Prothrombin Time 10.3sec (8.1-12.5) Prothromb Time International Ratio 0.96ratio D-Dimer < 0.50mg/L FEU (<0.50) Hold Red Top Tube Received (Received) Hemoglobin A1c 5.7% (4.8-5.6) Magnesium Level 2.1mg/dL (1.6-2.6) Thyroid Stimulating Hormone (TSH) 4.020uIU/mL (0.450-4.500) Test 07/24/16 05:15 07/24/16 19:25 07/25/16 07:30 07/25/16 13:38 Urine Color Yellow (YELLOW) Urine Appearance Clear (CLEAR,HAZY) Urine pH 5.5 (5.0-8.0) Urine Specific Slater 1.015 (1.003-1.035) Urine Protein Negativemg/dL (NEG,TRACE) Urine Glucose (UA) Negativemg/dL (NEGATIVE) Urine Ketones Negativemg/dL (NEGATIVE) Urine Occult Blood Negative (NEGATIVE) Urine Nitrite Negative (NEGATIVE) Urine Bilirubin Negative (NEGATIVE) Urine Urobilinogen Normalmg/dL (NORMAL) Urine Leukocyte Esterase Negative (NEGATIVE) Urine RBC 0-2/hpf (0-2) Urine WBC 0-5/hpf (0-5) Urine Epithelial Cells Occasional/hpf (NONE-MOD) Urine Crystals None seen (NONE SEEN) Urine Bacteria Few/hpf (NONE-FEW) Urine Hyaline Casts None/lpf (NONE) Urine Granular Casts None seen (NONE SEEN) Urine Waxy Casts None seen (NONE SEEN) Urine Red Blood Cell Casts None seen (NONE SEEN) Urine White Blood Cell Casts None seen (NONE SEEN) Urine Mucus None seen (None Seen) Urine Trichomonas None seen (NONE SEEN) Urine Yeast None (NONE SEEN) Urinalysis Comment None Urine Culture Reflexed Not indicated Troponin T < 0.010ug/L (0.0-0.011) White Blood Count 4.8th/mm3 (3.8-10.1) Red Blood Count 4.48mil/mm3 (4.40-5.80) Hemoglobin 13.4g/dL (13.8-17.2) Hematocrit 41.5% (41.0-50.0) Mean Corpuscular Volume 92.6fL (81-100) Mean Corpuscular Hemoglobin 29.9pg (27.0-35.0) Mean Corpuscular Hemoglobin Concent 32.3% (32.0-37.0) Red Cell Distribution Width 14.3% (12.3-15.4) Platelet Count 170bil/L (150-400) Neutrophils (%) (Auto) 61.8% (40-74) Lymphocytes (%) (Auto) 21.9% (14-46) Monocytes (%) (Auto) 10.3% (4-12) Eosinophils (%) (Auto) 5.4% (0-5) Basophils (%) (Auto) 0.4% (0-3) Sodium Level 142mEq/L (134-144) Potassium Level 4.3mEq/L (3.5-5.2) Chloride Level 107mEq/L (97-108) Carbon Dioxide Level 18mmol/L (18-29) Blood Urea Nitrogen 12mg/dL (8-27) Creatinine 0.80mg/dL (0.76-1.27) Estimat Glomerular Filtration Rate 103mL/min (>59) Glucose Level 95mg/dL (60-99) Calcium Level 8.8mg/dL (8.5-10.1) Triglycerides Level 147mg/dL (0-149) Cholesterol Level 234mg/dL (100-199) LDL Cholesterol, Calculated 145.600mg/dL (0-99) VLDL Cholesterol 29.400mg/dL HDL Cholesterol 59mg/dL (>39) Cholesterol/HDL Ratio 3.97 (0.0-4.4) Activated Partial Thromboplast Time 49.5sec (22.8-33.0) Discharge Medications Discharge Medications ([Aspirin-Expunged Drug, Do Not Renew!]) 325 MG TABLET 325 MG PO DAILY Prescribed by: JACOB MEHTA DO Bupropion ER (Bupropion ER) 150 Mg Tablet.er 150 MG PO DAILY (Reported) Clopidogrel (Clopidogrel) 75 Mg Tablet 75 MG PO DAILY (Reported) Ezetimibe (Zetia) 10 Mg Tablet 10 MG PO DAILY (Reported) Lisinopril (Lisinopril) 5 Mg Tablet 5 MG PO HS Prescribed by: JACOB MEHTA DO Metoprolol Succinate ER (Metoprolol Succinate ER) 50 Mg Tab.er.24h 50 MG PO DAILY Prescribed by: JACOB MEHTA DO Rosuvastatin Calcium (Crestor) 10 Mg Tablet 10 MG PO HS Prescribed by: JACOB MEHTA DO As needed Nitroglycerin SL (Nitrostat) 0.4 Mg Tab.subl 0.4 MG SL Q5MIN PRN PRN For Chest Pain Prescribed by: JACOB MEHTA DO Followup Plan Follow-up plan Follow-up with cardiology in 3-4 weeks Discharge Diet: Heart Healthy Discharge Activity: Limited until seen by PCP Follow-up with PCP in: 1 week Time spent 45 minutes Jacob Mehta DO Jul 25, 2016 18:17
== END 2016-07-25 19:50 | disposition home or self-care (01) | DRG 287 ==
LOC: SED 23:52 → PCC 07-24 02:52
PROVIDERS: ADMIT Family Medicine; ATTEND Family Medicine
PROC: 5A2204Z Restoration of Cardiac Rhythm, Single (ICD-10-PCS; 2016-07-23)
PROC: B211YZZ Fluoroscopy of Multiple Coronary Arteries using Other Contrast (ICD-10-PCS; principal; 2016-07-25)
PROC: 4A023N7 Measurement of Cardiac Sampling and Pressure, Left Heart, Percutaneous Approach (ICD-10-PCS; 2016-07-25)
DX: I25.10 Atherosclerotic heart disease of native coronary artery without angina pectoris (principal); I47.1 Supraventricular tachycardia; I24.9 Acute ischemic heart disease, unspecified; Z79.82 Long term (current) use of aspirin; I25.2 Old myocardial infarction; F17.210 Nicotine dependence, cigarettes, uncomplicated; E66.09 Other obesity due to excess calories; E78.5 Hyperlipidemia, unspecified; Z68.35 Body mass index [BMI] 35.0-35.9, adult; I10 Essential (primary) hypertension; N19 Unspecified kidney failure; I42.9 Cardiomyopathy, unspecified